=== PATIENT | male | born 1965 | race Caucasian/White ===

== ENCOUNTER 2019-02-09 12:00 | Emergency (ER) | payer BC ==
[~2019-02-09] VITALS: Ht 177.8 cm; Wt 93.0 kg
--- NOTE | 2019-02-09 12:03 | NUR ---
PT AMBULATED TO ER BED 7
[2019-02-09 12:05] VITALS: BP 128/93
--- NOTE | 2019-02-09 12:15 | NUR ---
PT C/O RUQ 9/10 DULL/SHARP PAIN, CONTINUOUS RADIATES TO THE NECK, ON INSPIRATION, SINCE FRIDAY. ABDOMEN SOFT, ROUND, NONTENDER. BOWEL SOUNDS NORMOACTIVE X 4 QUADRANTS. LBM TODAY. DENIES N/V/D. DENIES DYSURIA, FRQUENCY. STATES HE SAW HIS PCP AND HE WAS CONCERNED ABOUT HEPATITIS, SENT HIM FOR FURTHER WORKUP BUT HAS NOT GONE YET. RESPIRATIONS EVEN/UNLABORED, LUNG SOUNDS CLEAR BILAT THROUGHOUT, 98% SPO2 ON RA.
--- NOTE | 2019-02-09 12:24 | NUR ---
DR. POOLE AT BEDSIDE PERFORMING MSE
[2019-02-09] MEDS ORDERED: KETOROLAC 60 MG/2 ML VIAL IM ONE (12:30)
--- NOTE | 2019-02-09 12:30 | NUR ---
PT AMBULATED TO RESTROOM AT THIS TIME
--- NOTE | 2019-02-09 12:43 | NUR ---
LAB AT BEDSIDE
[2019-02-09 13:14] LABS: BASOPHILS % (AUTO) 0.4 % (0.0-2.0); EOSINOPHILS # (AUTO) 0.1 K/uL (0-0.4); HEMATOCRIT 41.1 % (36-52); HEMOGLOBIN 13.6 g/dL (12.0-18.0); LYMPHOCYTES # (AUTO) 1.5 K/uL (2.0-11.5); LYMPHOCYTES % (AUTO) 19.3 % (20.5-51.1); MEAN CORPUSCULAR HEMOGLOBIN 31 pg (27-31); MEAN CORPUSCULAR HGB CONC 33 g/dL (33-37); MEAN CORPUSCULAR VOLUME 93.8 fL (80-94); MONOCYTES # (AUTO) 0.8 K/uL (0.8-1.0); MONOCYTES % (AUTO) 10.7 % (1.7-9.3); NEUTROPHILS # (AUTO) 5.4 K/uL (1.8-7.7); NEUTROPHILS % (AUTO) 68.6 % (42.2-75.2); PLATELET COUNT (AUTO) 254 K/uL (140-450); RED BLOOD CELL COUNT(AUTO) 4.38 MIL/uL (4.20-6.10); RED CELL DISTRIBUTION WIDTH 13.1 % (11.6-13.7); WHITE BLOOD COUNT (AUTO) 7.9 K/uL (4.8-10.8)
[2019-02-09 13:18] LABS: APPEARANCE,URINE CLEAR (CLEAR); BILIRUBIN,URINE NEGATIVE (NEGATIVE); BLOOD, URINE NEGATIVE (NEGATIVE); COLOR,URINE YELLOW (YELLOW); LEUKOCYTE ESTERASE ,URINE TRACE (NEGATIVE); NITRITE, URINE NEGATIVE (NEGATIVE); PH,URINE 6.5 (5.0-9.0); UGLUCOSE NEGATIVE (NEGATIVE)
[2019-02-09 13:34] LABS: CARBON DIOXIDE 27.9 mmol/L (21-32); CREATININE 0.9 mg/dL (0.7-1.3); POTASSIUM 3.9 mmol/L (3.5-5.1)
[2019-02-09 13:37] LABS: RBC,URINE 0-5 /HPF (0-5)
[2019-02-09 13:41] LABS: ALBUMIN 4.3 g/dL (3.4-5.0); TOTAL BILIRUBIN 0.6 mg/dL (0.0-1.0)
[2019-02-09 14:58] VITALS: BP 125/58
--- NOTE | 2019-02-09 14:58 | NUR ---
Patient discharged with v/s stable. Written and verbal after care instructions given and explained. Patient alert, oriented and verbalized understanding of instructions. Ambulatory with steady gait. All questions addressed prior to discharge. ID band removed. Patient advised to follow up with PMD. Rx of NAPROSYN AND CEPHALEXIN given. Patient educated on indication of medication including possible reaction and side effects. Opportunity to ask questions provided and answered.
== END 2019-02-09 14:58 | disposition home or self-care (01) ==
LOC: MED 12:00
DX: R10.11 Right upper quadrant pain (principal); R11.0 Nausea; Z87.442 Personal history of urinary calculi
CPT/HCPCS: 36415; 76705; 80053; 81001; 83690; 85025; 87086; 96372; 99284; J1885; Q0092